=== PATIENT | female | born 1980 | race Caucasian/White ===

== ENCOUNTER 2021-01-28 16:08 | Emergency (ER) | payer OTHER, SELFPAY ==
--- NOTE | 2021-01-28 16:33 | PC.NURSE ---
1615 spoke briefly with pt following registration who asks if we can diagnose abdominal pain. informed we can not provide ultrasound/ct scans/lab work for diagnostic studies. pt states she will go to er and does not want to be seen here.
== END 2021-01-28 16:15 | disposition left against medical advice (07) ==
LOC: EXPBETH 16:16
PROVIDERS: Emergency Provider Nurse Practitioner
DX: Z53.21 Procedure and treatment not carried out due to patient leaving prior to being seen by health care provider (principal)
CPT/HCPCS: 99199

== ENCOUNTER 2022-10-13 14:40 | Emergency (ER) | payer OTHER, SELFPAY ==
[2022-10-13 14:51] VITALS: BP 149/108; PULSE 95; RESP 16; TEMP 36.9; O2SAT 100
--- NOTE | 2022-10-13 15:07 | ED.EYEPROB ---
HPI - Eye Problem General Chief complaint: Eye Problems Stated complaint: eyes hurting/blurry Time Seen by Provider: 10/13/22 15:08 Source: patient, RN notes reviewed and old records reviewed Mode of arrival: ambulatory Limitations: no limitations History of Present Illness HPI Narrative: 42-year-old female presents to the [facility] with bilateral red eyes since Saturday. Has been using allergy drops. Reports clear drainage. No traumas. Does not wear contact lenses. Also reports that her eyes were matted shut over the last couple of days. Reports minor blurry vision but no significant change in vision. Related Data Home Medications Medication Instructions Recorded Confirmed albuterol sulfate 90 mcg/actuation 90 puff inhalation Q4-6H PRN 10/13/22 10/13/22 aerosol inhaler Wheezing bupropion HCl 300 mg 24 hr tablet, 300 mg PO DAILY 10/13/22 10/13/22 extended release escitalopram oxalate 10 mg tablet 10 mg PO DAILY 10/13/22 10/13/22 fluticasone propionate 250 2 inh inhalation BID 10/13/22 10/13/22 mcg/actuation blister powder for inhalation (Flovent Diskus) meloxicam 15 mg tablet 15 mg PO DAILY PRN Dizziness Or 10/13/22 10/13/22 Vertigo montelukast 10 mg tablet 10 mg PO DAILY 10/13/22 10/13/22 Allergies Allergy/AdvReac Type Severity Reaction Status Date / Time No Known Allergies Allergy Verified 10/13/22 15:06 Review of Systems Review of Systems: All systems reviewed & are unremarkable except as noted in HPI and below Constitutional: Constitutional: Reports no additional constitutional complaints, Denies chills and Denies fever(s) Eyes: Eyes: Reports as per HPI, Reports eye discharge, Reports irritation, Reports itchy eyes and Reports photophobia ENT: Reports system reviewed and no additional complaints, except as documented Cardiovascular: Cardiovascular: Reports no additional cardiovascular complaints Respiratory: Respiratory: Reports no additional respiratory complaints Gastrointestinal: Gastrointestinal: Reports no additional gastrointestinal complaints Musculoskeletal: Musculoskeletal: Reports no additional musculoskeletal complaints Integumentary/Breasts: Skin/Breast: Reports system reviewed and no additional complaints, except as docu Neurologic: Reports system reviewed and no additional complaints, except as documented Psychiatric: Psychiatric: Reports no additional psychiatric complaints Allergic/Immunologic: Allergic/Immunologic: Reports no additional allergic/immunologic complaints PMFSH Comments At the time of my signature, I reviewed and agree with the nursing past medical, surgical, social, and family history. There is no relevant family history pertinent to the patient complaint. Exam Const: General: healthy appearing, comfortable, no acute distress, well developed, alert and well nourished Nutritional Appearance: well nourished and obese Orientation/consciousness: patient oriented x3 Limitations: no limitations HENMT: Head: normal to inspection Ears: external ears normal, TM's normal bilaterally and EAC's normal Face/Nose/Sinus: Normal external nose present and Normal nares present Eyes: General: appearance normal, both eyes and all related structures Conjunctivae: conjunctival abnormality bilateral conjunctival injection diffuse and discharge mucoid Pupils: Equal, round and reactive pupils present EOM: EOMs intact bilaterally Direct Ophthalmoscopy: photophobia Neck: Neck: normal visual inspection, full ROM, no lymphadenopathy and no meningeal signs Chest: Chest palpation & inspection: normal inspection of the chest Resp: Effort & Inspection: normal respiratory effort and no use of accessory muscles Auscultation: clear to auscultation bilaterally, no crackles, no rales, no rhonchi and no wheezes Cardio: Rate: regular rate Rhythm: regular rhythm Back/Spine/Pelvis: Cervical Spine: cervical ROM normal and No Cervical spine tenderness Thoracic/Lumbar Spine: thora
== END 2022-10-13 15:23 | disposition home or self-care (01) ==
PROVIDERS: Emergency Provider Nurse Practitioner
DX: H10.9 Unspecified conjunctivitis (principal); J45.909 Unspecified asthma, uncomplicated; F41.9 Anxiety disorder, unspecified; F32.A Depression, unspecified
CPT/HCPCS: 99213; G0463

== ENCOUNTER 2023-05-13 16:50 | Emergency (ER) | payer OTHER, SELFPAY ==
[2023-05-13 16:55] VITALS: BP 152/104; PULSE 98; RESP 20; TEMP 37.2; O2SAT 100
--- NOTE | 2023-05-13 17:13 | ED.URI ---
HPI - URI/Sore Throat General Chief Complaint: Upper Respiratory Infection Stated Complaint: Ear Pain/Sore Throat History of Present Illness HPI Narrative: PATIENT PRESENTS WITH NASAL CONGESTION COUGH. NO SHORTNESS OF BREATH NO CHEST PAIN NO EXPOSURE TO INFLUENZA OR COVID. NO TROUBLE SWALLOWING NO DROOLING Related Data Home Medications Medication Instructions Recorded Confirmed albuterol sulfate 90 mcg/actuation 90 puff inhalation Q4-6H PRN 10/13/22 05/13/23 aerosol inhaler Wheezing bupropion HCl 300 mg 24 hr tablet, 300 mg PO DAILY 10/13/22 05/13/23 extended release escitalopram oxalate 10 mg tablet 10 mg PO DAILY 10/13/22 05/13/23 fluticasone propionate 250 2 inh inhalation BID 10/13/22 05/13/23 mcg/actuation blister powder for inhalation (Flovent Diskus) meloxicam 15 mg tablet 15 mg PO DAILY PRN Dizziness Or 10/13/22 05/13/23 Vertigo montelukast 10 mg tablet 10 mg PO DAILY 10/13/22 05/13/23 Allergies Allergy/AdvReac Type Severity Reaction Status Date / Time No Known Allergies Allergy Verified 05/13/23 17:01 Review of Systems Review of Systems: CONSTITUTIONAL: DENIES CHILLS, OR SWEATS. REPORTS FEVER AND GENERALIZED BODY ACHES EYES: DENIES VISUAL CHANGES, REDNESS, OR DISCHARGE. ENT: DENIES OTALGIA. REPORTS NASAL CONGESTION RUNNY NOSE AND SORE THROAT CARDIOVASCULAR: DENIES CHEST PAIN, PALPITATIONS, OR EDEMA. RESPIRATORY: DENIES DYSPNEA. REPORTS OCCASIONAL COUGH GASTROINTESTINAL: DENIES ABDOMINAL PAIN, NAUSEA, VOMITING, OR DIARRHEA. GENITOURINARY: DENIES DYSURIA OR HEMATURIA. SKIN: DENIES RASH OR ITCHING. MUSCULOSKELETAL: DENIES BACK PAIN, JOINT PAIN, OR MYALGIA. REPORTS GENERALIZED BODY ACHES NEUROLOGIC: DENIES HEADACHE, NUMBNESS, OR WEAKNESS. PSYCHIATRIC: DENIES ANXIETY OR DEPRESSION. PMFSH Comments AT TIME OF SIGNATURE, AGREE WITH NURSING PAST MEDICAL, SURGICAL, SOCIAL AND FAMILY HISTORY. THERE IS NO RELEVANT FAMILY HISTORY PERTINENT TO THE PRESENTING COMPLAINT Exam Narrative: THE PATIENT IS A WELL-DEVELOPED, WELL-NOURISHED IN NO ACUTE DISTRESS. SKIN: SKIN IS WARM AND DRY WITHOUT ERYTHEMA, SWELLING OR EXUDATE. THERE IS GOOD TURGOR. NO TENTING. HEAD: ATRAUMATIC. NORMOCEPHALIC. NO TEMPORAL OR SCALP TENDERNESS. EYES: MOIST AND BRIGHT. SCLERA AND CONJUNCTIVAE NORMAL. NO DISCHARGE. PERRLA. EXTRAOCULAR MOTIONS INTACT. GROSS VISUAL ACUITY INTACT. EARS: PINNA IS NORMAL SHAPE AND CONTOUR. CLEAR EXTERNAL AUDITORY CANALS. TM PEARLY RENDON WITH GOOD CONE OF LIGHT, NO ERYTHEMA OR SUPPURATION. BILATERAL CERUMEN NOTED NO GROSS HEARING DEFICIT. NOSE: PINK, MOIST MUCOSA WITH GOOD AIR MOVEMENT. CLEAR RHINORRHEA WITHOUT NASAL FLARING. SEPTUM MIDLINE. MOUTH: MOIST MUCOUS MEMBRANES. THROAT; MILD ERYTHEMA NOTED TO POSTERIOR OROPHARYNX WITH MODERATE POSTNASAL DRAINAGE. WITHOUT EXUDATE OR ULCERATION.. UVULA MIDLINE. NORMAL MOVEMENT OF SOFT PALATE. NECK: SUPPLE AND NONTENDER WITH FULL RANGE OF MOTION WITHOUT DISCOMFORT. NO MENINGEAL SIGNS. LUNGS: EQUAL AND BILATERAL BREATH SOUNDS WITHOUT WHEEZES, RALES OR RHONCHI. CHEST: THE CHEST WALL IS WITHOUT RETRACTIONS OR USE OF ACCESSORY MUSCLES. HEART: HAS A REGULAR RATE AND RHYTHM WITHOUT MURMUR, GALLOPS, CLICK OR RUB. ABDOMEN: SOFT, NONTENDER WITH POSITIVE ACTIVE BOWEL SOUNDS. NO REBOUND TENDERNESS. EXTREMITIES: WITHOUT CYANOSIS, CLUBBING OR EDEMA. EQUAL 2+ DISTAL PULSES AND 2 SECOND CAPILLARY REFILL NOTED. NEUROLOGIC: ALERT, ACTIVE, . THE PATIENT MOVES ALL EXTREMITIES WITH NORMAL MUSCLE STRENGTH. NORMAL MUSCLE TONE IS NOTED. NORMAL COORDINATION IS NOTED. NO FOCAL NEUROLOGICAL FINDINGS NOTED. Course Course Level of Care: Express Care Visit Vital Signs Vital signs: Vital Signs Temperature 37.2 C 05/13/23 16:55 Pulse Rate 98 05/13/23 16:55 Respiratory Rate 20 05/13/23 16:55 Blood Pressure 152/104 H 05/13/23 16:55 Pulse Oximetry 100 05/13/23 16:55 Oxygen Delivery Room Air 05/13/23 16:55 Temperature 37.2 C 05/13/23 16:55 Pulse Rate 98 0
== END 2023-05-13 17:20 | disposition home or self-care (01) ==
PROVIDERS: Emergency Provider Nurse Practitioner Family
DX: J06.9 Acute upper respiratory infection, unspecified (principal); R09.82 Postnasal drip; J45.909 Unspecified asthma, uncomplicated; F41.9 Anxiety disorder, unspecified; F32.A Depression, unspecified
CPT/HCPCS: 99213; G0463

== ENCOUNTER 2023-05-18 14:04 | Emergency (ER) | payer OTHER, SELFPAY ==
[2023-05-18 14:08] VITALS: BP 148/92; PULSE 100; RESP 20; TEMP 37; O2SAT 99
--- NOTE | 2023-05-18 14:13 | ED.DIZZY ---
HPI - Dizziness General Chief Complaint: Dizziness Stated Complaint: light headed Time Seen by Provider: 05/18/23 14:13 Source: patient and RN notes reviewed History of Present Illness HPI Narrative: Patient is a 43-year-old female presents to urgent care with complaints of dizziness, lightheadedness and muffled hearing. Patient was here last Saturday and was given steroids to help with eustachian tube dysfunction. Patient states that the vertigo was really bad last night and she felt extremely lightheaded. Patient states that it has gotten better today however still having muffled hearing. Patient states she has been taking Claritin. Patient also has a history of vertigo. No other acute complaints. No acute distress noted. Patient aware of the plan of care. Some parts of this dictation were generated by voice recognition software and may contain typographical and/or grammatical inaccuracies. Related Data Home Medications Medication Instructions Recorded Confirmed albuterol sulfate 90 mcg/actuation 90 puff inhalation Q4-6H PRN 10/13/22 05/18/23 aerosol inhaler Wheezing bupropion HCl 300 mg 24 hr tablet, 300 mg PO DAILY 10/13/22 05/18/23 extended release escitalopram oxalate 10 mg tablet 10 mg PO DAILY 10/13/22 05/18/23 fluticasone propionate 250 2 inh inhalation BID 10/13/22 05/18/23 mcg/actuation blister powder for inhalation (Flovent Diskus) montelukast 10 mg tablet 10 mg PO DAILY 10/13/22 05/18/23 Allergies Allergy/AdvReac Type Severity Reaction Status Date / Time No Known Allergies Allergy Verified 05/18/23 14:18 Review of Systems Review of Systems: CONSTITUTIONAL: Denies fever, chills, or sweats. EYES: Denies visual changes, redness, or discharge. ENT: Denies rhinorrhea, congestion, sore throat. Reports bilateral muffled hearing and ear discomfort CARDIOVASCULAR: Denies chest pain, palpitations, or edema. RESPIRATORY: Denies cough or dyspnea. GASTROINTESTINAL: Denies abdominal pain, nausea, vomiting, or diarrhea. GENITOURINARY: Denies dysuria or hematuria. SKIN: Denies rash or itching. MUSCULOSKELETAL: Denies back pain, joint pain, or myalgia. NEUROLOGIC: Reports of lightheadedness and dizziness All other systems reviewed are negative, except as documented in HPI. PMFSH Comments At the time of my signature, I reviewed and agree with the nursing past medical, surgical, social, and family history. There is no relevant family history pertinent to the patient complaint. Exam Narrative: GENERAL: This is a well-nourished, well-developed patient, in no apparent distress. HEAD: normocephalic, atraumatic. EYES: PERRL. Sclera clear/white. Vision is grossly intact. EARS: External ears normal, right auditory canals clear and without drainage, bilateral eustachian tube dysfunction with spontaneous rupture to the left with scant drainage.. Hearing grossly intact. NOSE: External nose normal with no obvious nasal discharge, nares without redness, no rhinorrhea. THROAT: Mucous membranes moist NECK: Neck supple CARDIOVASCULAR: Regular rate and rhythm RESPIRATORY: Clear to auscultation. Breath sounds equal bilaterally. No wheezes, rales, or rhonchi. SKIN: warm, intact with no suspicious lesions or rash, good texture and turgor. NEURO: awake, alert, and oriented to person, place and time. There were no obvious focal neurologic abnormalities. EXTREMITIES: No clubbing, cyanosis, or edema. Course Course Level of Care: Express Care Visit Vital Signs Vital signs: Vital Signs Temperature 98.6 F 05/18/23 14:08 Pulse Rate 100 05/18/23 14:08 Respiratory Rate 20 05/18/23 14:08 Blood Pressure 148/92 H 05/18/23 14:08 Pulse Oximetry 99 05/18/23 14:08 Oxygen Delivery Room Air 05/18/23 14:08 Temperature 98.6 F 05/18/23 14:08 Pulse Rate 100 05/18/23 14:08 Respiratory Rate 20 05/18/23 14:08 Blood Pressure 148/92 H 05/18/23 14:08 Pulse Oximetry 99 05/18/23 14:08 Oxygen Del
== END 2023-05-18 14:35 | disposition home or self-care (01) ==
PROVIDERS: Emergency Provider Nurse Practitioner Family
DX: R42 Dizziness and giddiness (principal); H69.93 Unspecified Eustachian tube disorder, bilateral; J45.909 Unspecified asthma, uncomplicated; F41.9 Anxiety disorder, unspecified; F32.A Depression, unspecified
CPT/HCPCS: 99213; G0463